=== PATIENT | female | born 1960 | race African-American/Black ===

== ENCOUNTER → 2018-06-02 | Outpatient (CLI) | payer BC, OTHER ==
[~2018-06-02] MED LIST: AMOXICILLIN875 MG PO; BUMETANIDE 1 MG1 M1 PO; CIPRO250 MG PO; CIPROFLOXACIN500 M1 PO; CORICIDIN HBP1 EAC5 PO; ENALAPRIL MALEAT5 M1 PO; FLEXERIL PO; FLONASE 0.05%50 MCG NASAL; HYDROCODON-ACE1 EAC1 PO; IBUPROFEN 600600 M1 PO; K-DUR 20 MEQ T20 MEQ PO; NAPROSYN500 MG PO; NORCO 5-325 TA1 EACH PO; TYLENOL SINUS1 EAC3 PO; VALIUM2 MG PO; ZOFRAN ODT4 MG PO; ZPAK PO; [UNRECOGNIZED DRUG - REMARK]
== END ==
LOC: RAD 10:41
DX: Z12.31 Encounter for screening mammogram for malignant neoplasm of breast (principal)

== ENCOUNTER 2018-08-18 21:11 | Emergency (ER) | payer BC, OTHER ==
[~2018-08-18] VITALS: Ht 170.2 cm; Wt 84.8 kg
[2018-08-18 22:00] LABS: ABSOLUTE NEUTROPHILS 2.1 thou/uL (1.4-8.2); BASOPHILS 0.8 % (0.0-2.0); EOSINOPHILS 1.2 % (0.0-3.0); HEMATOCRIT 38.2 % (37.0-47.0); HEMOGLOBIN 12.7 gm/dL (12.0-15.0); LYMPHOCYTES 37.3 % (24.0-44.0); MCH 27.7 pg (26.0-34.0); MCHC 33.3 g/dL (28.0-37.0); MCV 83.3 fL (80.0-100.0); MONOCYTES 5.6 % (1.0-8.0); PLATELET COUNT 212 thou/uL (150-400); POLYS 55.1 % (36.0-66.0); RBC 4.58 mil/uL (4.20-5.00); RDW 13.7 % (10.5-14.5); WBC 3.8 thou/uL (4.0-11.0)
[2018-08-18 22:09] LABS: ANION GAP 8 mmol/L (7-16); BUN 13 mg/dL (7-18); CALCIUM 8.5 mg/dL (8.5-10.1); CHLORIDE 103 mmol/L (98-107); CO2 30 mmol/L (21-32); CREATININE 0.8 mg/dL (0.6-1.0); GLUCOSE 117 mg/dL (74-106); POTASSIUM 3.2 mmol/L (3.5-5.1); SODIUM 141 mmol/L (136-145)
[2018-08-18 22:17] LABS: ALBUMIN 3.5 g/dL (3.4-5.0); SGOT 20 U/L (15-37); SGPT 21 U/L (30-65); TOTAL BILIRUBIN 0.4 mg/dL (<0.1-1.0); TOTAL PROTEIN 6.6 g/dL (6.4-8.2); TROPONIN-I <0.06 ng/mL (<0.06)
[2018-08-19 00:01] VITALS: BP 181/93
--- NOTE | 2018-08-19 09:37 | EKG ---
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1960 Requested By: Thomas Francois Order Number: [id number] MD: Marvin Herr Measurements Intervals [place] Rate: 65 P: 48 MD: 173 QRS: 24 QRSD: 87 T: 33 QT: 463 QTc: 482 Interpretive Statements Sinus rhythm Nonspecific ST and T wave abnormality Compared to ECG 08/03/2015 14:39:20 No significant change was found Electronically Signed On 08-19-2018 9:37:07 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
== END 2018-08-19 00:02 | disposition home or self-care (01) ==
LOC: ER 21:11
PROVIDERS: Emergency Medicine
DX: R07.89 Other chest pain (principal); I10 Essential (primary) hypertension; K21.9 Gastro-esophageal reflux disease without esophagitis; M19.90 Unspecified osteoarthritis, unspecified site; F17.210 Nicotine dependence, cigarettes, uncomplicated; Z88.2 Allergy status to sulfonamides; Z98.890 Other specified postprocedural states

== ENCOUNTER 2019-05-26 07:33 | Emergency (ER) | payer BC, OTHER ==
[~2019-05-26] VITALS: Ht 170.2 cm; Wt 80.7 kg
[~2019-05-26 07:33] MED LIST changes: +PRILOSEC OTC20 MG PO
[2019-05-26 09:14] VITALS: BP 189/110
== END 2019-05-26 09:15 | disposition home or self-care (01) ==
LOC: ER 07:33
DX: S63.682A Other sprain of left thumb, initial encounter (principal); I10 Essential (primary) hypertension; M19.90 Unspecified osteoarthritis, unspecified site; K21.9 Gastro-esophageal reflux disease without esophagitis; Z98.51 Tubal ligation status; Z88.2 Allergy status to sulfonamides; W01.0XXA Fall on same level from slipping, tripping and stumbling without subsequent striking against object, initial encounter; Y93.89 Activity, other specified; Y92.89 Other specified places as the place of occurrence of the external cause; Y99.8 Other external cause status

== ENCOUNTER → 2019-07-19 | Outpatient (CLI) | payer BC, OTHER | LOC: BC 10:49 | DX: Z12.31 Encounter for screening mammogram for malignant neoplasm of breast (principal) ==

== ENCOUNTER 2019-09-14 18:47 | Emergency (ER) | payer BC, OTHER ==
[~2019-09-14] VITALS: Ht 170.2 cm; Wt 85.3 kg
[2019-09-14] MEDS ORDERED: MEDROLDOSEPACK PO (19:43)
[2019-09-14 20:02] VITALS: BP 190/100
== END 2019-09-14 20:02 | disposition home or self-care (01) ==
LOC: ER 18:47
DX: M75.51 Bursitis of right shoulder (principal); I10 Essential (primary) hypertension; M19.90 Unspecified osteoarthritis, unspecified site; K21.9 Gastro-esophageal reflux disease without esophagitis

== ENCOUNTER → 2020-07-24 | Outpatient (CLI) | payer BC, OTHER ==
[~2020-07-24] MED LIST changes: +MEDROLDOSEPACK PO
== END ==
LOC: RAD 09:20
PROVIDERS: ATTEND Internal Medicine
DX: Z12.31 Encounter for screening mammogram for malignant neoplasm of breast (principal)

== ENCOUNTER 2020-08-27 12:19 | Emergency (ER) | payer BC, OTHER ==
[~2020-08-27] VITALS: Ht 170.2 cm; Wt 90.3 kg
[2020-08-27] MEDS ORDERED: OLMESARTAN MEDO40 MG PO (12:48)
[2020-08-27 15:49] VITALS: BP 141/83
== END 2020-08-27 15:50 | disposition home or self-care (01) ==
LOC: ER 12:19
DX: R51.9 Headache, unspecified (principal); I10 Essential (primary) hypertension; K21.9 Gastro-esophageal reflux disease without esophagitis; Z79.899 Other long term (current) drug therapy; Z88.2 Allergy status to sulfonamides

== ENCOUNTER 2021-01-12 18:07 | Emergency (ER) | payer BC, OTHER ==
[~2021-01-12] VITALS: Ht 170.2 cm; Wt 81.7 kg
[~2021-01-12 18:07] MED LIST changes: +OLMESARTAN MEDO40 MG PO
[2021-01-12] MEDS ORDERED: CARVEDILOL ER20 MG PO (18:40)
[2021-01-12] MEDS ORDERED: NORVASC5 MG PO (18:41)
[2021-01-12 19:07] LABS: ABSOLUTE NEUTROPHILS 1.9 thou/uL (1.4-8.2); BASOPHILS 0.7 % (0.0-2.0); EOSINOPHILS 1.3 % (0.0-3.0); HEMATOCRIT 40.2 % (37.0-47.0); HEMOGLOBIN 13.2 gm/dL (12.0-15.0); LYMPHOCYTES 33.1 % (24.0-44.0); MCH 27.8 pg (26.0-34.0); MCHC 32.9 g/dL (28.0-37.0); MCV 84.6 fL (80.0-100.0); MONOCYTES 10.6 % (1.0-8.0); PLATELET COUNT 218 thou/uL (150-400); POLYS 54.3 % (36.0-66.0); RBC 4.75 mil/uL (4.20-5.00); RDW 13.8 % (10.5-14.5); WBC 3.4 thou/uL (4.0-11.0)
[2021-01-12 19:13] LABS: ANION GAP 8 mmol/L (7-16); BUN 19 mg/dL (7-18); CALCIUM 8.9 mg/dL (8.5-10.1); CHLORIDE 104 mmol/L (98-107); CO2 31 mmol/L (21-32); GLUCOSE 131 mg/dL (74-106); SODIUM 143 mmol/L (136-145)
[2021-01-12 19:23] LABS: ALBUMIN 3.7 g/dL (3.4-5.0); SGOT 21 U/L (15-37); SGPT 25 U/L (14-59); TOTAL BILIRUBIN 0.4 mg/dL (0.2-1.0); TOTAL PROTEIN 7.1 g/dL (6.4-8.2); TROPONIN-I <0.06 ng/mL (<0.06)
[2021-01-12] MEDS ORDERED: FLEXERIL PO (20:02)
[2021-01-12 20:06] VITALS: BP 184/96
--- NOTE | 2021-01-13 11:04 | EKG ---
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1960 Requested By: Randal Pride Order Number: [id number] MD: Donavon Leach Measurements Intervals [place] Rate: 73 P: 42 OK: 169 QRS: 3 QRSD: 94 T: -67 QT: 498 QTc: 549 Interpretive Statements Sinus rhythm LVH with secondary repolarization abnormality Prolonged QT interval Compared to ECG 08/18/2018 21:20:35 Left ventricular hypertrophy now present Prolonged QT interval now present Electronically Signed On 01-13-2021 11:04:14 CDT by Donavon Leach [email or web address] <ELECTRONICALLY SIGNED> By: Donavon Leach MD 01/13/21 1104 [id number] 1848 MD ELIN Mosher
== END 2021-01-12 20:13 | disposition home or self-care (01) ==
LOC: ER 18:07
PROVIDERS: Emergency Medicine
DX: I10 Essential (primary) hypertension (principal); M54.2 Cervicalgia; K21.9 Gastro-esophageal reflux disease without esophagitis; Z79.899 Other long term (current) drug therapy; Z88.2 Allergy status to sulfonamides; Z72.89 Other problems related to lifestyle

== ENCOUNTER → 2021-08-09 | Outpatient (CLI) | payer BC, OTHER ==
[~2021-08-09] MED LIST changes: +CARVEDILOL ER20 MG PO; +NORVASC5 MG PO
== END ==
LOC: BC 13:49
PROVIDERS: ATTEND Internal Medicine
DX: Z12.31 Encounter for screening mammogram for malignant neoplasm of breast (principal); N64.89 Other specified disorders of breast

== ENCOUNTER → 2021-08-21 | Outpatient (CLI) | payer BC, OTHER | LOC: ULTRA 08-14 10:54 → BC 08:44 → ULTRA 09:38 | PROVIDERS: ATTEND Internal Medicine | DX: N63.10 Unspecified lump in the right breast, unspecified quadrant (principal) ==